=== PATIENT | male | born 1960 | race Two or more races ===

== ENCOUNTER 2017-07-10 19:18 | Emergency (ER) | payer SELFPAY ==
[~2017-07-10] VITALS: Ht 170.2 cm; Wt 99.8 kg
[2017-07-10] MEDS ORDERED: NKM (20:16)
[2017-07-10] MEDS ORDERED: Tetanus/Diptheria/Pertussis Vaccine 0.5ml Syr IM ONE (21:00)
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
[2017-07-10] MEDS ORDERED: AUGMENTIN 875-1 EAC1 ORAL (22:29)
[2017-07-10] MEDS ORDERED: HYDROCODON-ACE1 EA15 ORAL (22:29)
[2017-07-10] MEDS ORDERED: Norco 5mg/325mg tab ORAL ONE (22:30)
[2017-07-10 22:31] VITALS: BP 165/88
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
[2017-07-11] MEDS ORDERED: NORCO 5-325 TA1 EACH ORAL (19:30)
== END 2017-07-10 22:33 | disposition home or self-care (01) ==
LOC: EMR 20:30
DX: S01.412A Laceration without foreign body of left cheek and temporomandibular area, initial encounter (principal); S01.81XA Laceration without foreign body of other part of head, initial encounter; S51.011A Laceration without foreign body of right elbow, initial encounter; S02.32XA Fracture of orbital floor, left side, initial encounter for closed fracture; S02.40DA Maxillary fracture, left side, initial encounter for closed fracture; S02.40FA Zygomatic fracture, left side, initial encounter for closed fracture; Y08.09XA Assault by strike by other specified type of sport equipment, initial encounter; Y92.410 Unspecified street and highway as the place of occurrence of the external cause; Z23 Encounter for immunization
CPT/HCPCS: 70486; 90471; 90715; 99284